=== PATIENT | female | born 1945 | race Two or more races ===

== ENCOUNTER 2019-01-22 12:32 | Emergency (ER) | payer MEDICAID, MEDICARE, OTHER ==
[~2019-01-22] VITALS: Ht 172.7 cm; Wt 68.0 kg
[2019-01-22 13:21] LABS: Urine Bacteria NONE SEEN /hpf (None Seen); Urine Blood Negative /uL (Negative); Urine WBC 1 /hpf (0 - 5)
[2019-01-22] MEDS ORDERED: SODIUM CHLORIDE 0.9% 1,000 ML IV ONE (13:23)
[2019-01-22] MEDS ORDERED: KETOROLAC TROMETH 30 MG/ML 1ML VIAL IV ONE (13:30)
[2019-01-22] MEDS ORDERED: ASPirin 81 mg TAB PO ONE (13:30)
[2019-01-22 13:44] LABS: Basophils # (auto) 0 uL; Basophils % (auto) 0.4 % (0.0-2.0); Eosinophils # (auto) 0.2 uL; Eosinophils % (auto) 2.6 % (0.0-7.0); Hematocrit 37.5 % (36.0-46.0); Hemoglobin 12.3 g/dL (12.2-16.2); Lymphocytes # (auto) 1.5 uL; Lymphocytes % (auto) 19.2 % (10.0-50.0); Mean Corpuscular Hgb Conc. 32.8 g/dL (32.0-36.0); Mean Corpuscular Volume 85.3 fL (80.0-100.0); Monocytes # (auto) 0.8 uL; Monocytes % (auto) 9.9 % (0.0-12.0); Neutrophils # (auto) 5.2 uL; Neutrophils % (auto) 67.9 % (37.0-80.0); Platelet Count (auto) 291 10^3/uL (140-450); Red Cell Distribution Width 17.7 % (11.8-14.3); White Blood Cell 7.6 10^3/uL (4.4-10.8)
[2019-01-22 14:00] LABS: Albumin 3.5 g/dL (3.4-5.0); Anion Gap 10 (5-15); Calcium 8.9 mg/dL (8.5-10.1); Carbon Dioxide 26 mmol/L (21-32); Chloride 105 mmol/L (98-107); Glucose 87 mg/dL (74-106); Potassium 3.3 mmol/L (3.5-5.1); Sodium 141 mmol/L (136-145)
[2019-01-22 14:05] LABS: Alanine Aminotransferase 28 U/L (13-56); Aspartate Aminotransferase 21 U/L (15-37); GFR African American 77 mL/min; GFR Non-African American 64 mL/min
[2019-01-22 14:09] LABS: Alkaline Phosphatase 51 U/L (45-117); BUN/Creatinine Ratio 20.7; Bilirubin, Total 0.5 mg/dL (0.2-1.0); Blood Urea Nitrogen 19 mg/dL (7-18)
[2019-01-22] MEDS ORDERED: POTASSIUM EFFERVESENT TAB 25 MEQ PO ONE (15:15)
[2019-01-22] MEDS ORDERED: IOHEXOL 350 MG/ML 100ML IJ ONE (15:17)
[2019-01-22] MEDS ORDERED: cloNIDine HCL 0.1 MG TAB ONE (17:06)
[2019-01-22 17:57] VITALS: BP 171/81
== END 2019-01-22 18:19 | disposition home or self-care (01) ==
LOC: EDBD 12:32 → ER 12:32
DX: R07.89 Other chest pain (principal); E87.6 Hypokalemia; I10 Essential (primary) hypertension; E11.9 Type 2 diabetes mellitus without complications; Z85.3 Personal history of malignant neoplasm of breast; Z90.710 Acquired absence of both cervix and uterus
CPT/HCPCS: 36415; 71046; 71275; 80053; 81001; 83735; 84443; 84484; 85025; 85379; 94761; 96374; 99284; J1885; J7030; Q9967

== ENCOUNTER 2024-10-18 07:57 | Emergency (ER) | payer OTHER ==
[~2024-10-18] VITALS: Ht 160 cm; Wt 68.7 kg
[2024-10-18 08:43] VITALS: TEMP 97.8
[2024-10-18 09:22] LABS: Basophils # (auto) 0 10 ^3/uL (0-0.2); Basophils % (auto) 0.7 % (0.0-2.0); Eosinophils # (auto) 0.1 10 ^3/uL (0-0.8); Eosinophils % (auto) 1.6 % (0.0-7.0); Hematocrit 36.3 % (36.0-46.0); Hemoglobin 11.9 g/dL (12.2-16.2); Lymphocytes # (auto) 0.6 10 ^3/uL (0.4-5.4); Lymphocytes % (auto) 10.2 % (10.0-50.0); Mean Corpuscular Hemoglobin 29.6 pg (28.0-32.0); Mean Corpuscular Hgb Conc. 32.9 g/dL (32.0-36.0); Mean Corpuscular Volume 89.9 fL (80.0-100.0); Monocytes # (auto) 0.3 10 ^3/uL (0-1.3); Monocytes % (auto) 4.5 % (0.0-12.0); Neutrophils # (auto) 5.2 10 ^3/uL (1.6-8.6); Nucleated Red Blood Cells % 0.1 %; Platelet Count (auto) 275 10^3/uL (140-450); Red Blood Cells 4.04 10^6/uL (4.0-5.20); Red Cell Distribution Width 18.2 % (11.8-14.3); White Blood Cell 6.2 10^3/uL (4.4-10.8)
[2024-10-18 09:33] LABS: Alanine Aminotransferase 22 U/L (7-40); Albumin 4.3 g/dL (3.2-4.8); Alkaline Phosphatase 50 U/L (46-116); Anion Gap 11 (5-15); Aspartate Aminotransferase 14 U/L (13-40); BUN/Creatinine Ratio 24.7 (10.0-20.0); Carbon Dioxide 24 mmol/L (20-31); Chloride 103 mmol/L (98-107); Potassium 3.6 mmol/L (3.5-5.1); Sodium 138 mmol/L (136-145); Total Protein 6.6 g/dL (5.7-8.2)
[2024-10-18 09:34] LABS: Bilirubin, Total 0.7 mg/dL (0.2-1.0); Blood Urea Nitrogen 24 mg/dL (9-23); Glucose 307 mg/dL (74-106)
[2024-10-18 09:41] LABS: Urine Bacteria FEW /hpf (None Seen); Urine Blood Negative /uL (Negative); Urine Clarity Clear (Clear); Urine Color Light-Yellow (Yellow); Urine Mucus FEW (None Seen); Urine Protein, UAD 2+ (Negative); Urine Squamous Epithelial Cell None Seen /hpf (<5); Urine Urobilinogen Normal (Negative); Urine WBC 28 /HPF (0-5)
--- NOTE | 2024-10-18 09:56 | DVH ---
EXAM: CT HEAD WITHOUT CONTRAST HISTORY: mechanical fall COMPARISON: None TECHNIQUE: Noncontrast axial CT images of the head were performed. Sagittal and coronal reformatted i mages were obtained. This CT exam was performed using 1 or more of the following dose reduction techn iques: Automated exposure control, adjustment of the mA and/or kv according to patient size, or the u se of iterative reconstruction techniques. Radiation Dose: CTDI volume is 64.2 mGy. Dose-length product is 2375.21 mGy*cm FINDINGS: There is global brain atrophy. There is mild decreased attenuation in the periventricular white lazaro er. 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 No intracran ial hemorrhage, mass, midline shift, hydrocephalus, or evidence of acute large vessel infarct. There are thick atherosclerotic calcifications of the cavernous ICAs. There are postoperative changes of bi lateral cataract extraction surgery. Probable old bilateral nasal bone fractures. There is a small am ount of fluid in the dependent portion of the left maxillary sinus. There is gas along the left maxil abdiel sinus anterior wall and posterolateral wall, without evidence of acute displaced fracture. There may be an old fracture of the left maxillary sinus anterior wall. There is a mucous retention cyst i n the left sphenoid sinus. There is a left gabby bullosa. There are degenerative changes of the tem poromandibular joints, greater on the left. The bilateral mastoid air cells and middle ear spaces are clear. No cranial fracture or scalp edema. IMPRESSION: 1. Global brain atrophy and chronic ischemic changes without evidence of acute intracranial process. 2. Gas in the soft tissues adjacent to the left maxillary sinus may indicate nondisplaced acute fract ure, although no acute displaced fractures are identified on the current study. Consider follow-up n oncontrast CT scan of the facial bones for better characterization. 3. Probable old nasal bone fractures and possible old fracture of the left maxillary sinus anterior w all. 4. Mild paranasal sinus disease.
--- NOTE | 2024-10-18 09:58 | DVH ---
Procedure: CT MAXILLOFACIAL WITHOUT 10/18/2024 09:20 AM Indication: fall. r/o fracture Comparison Study: None Technique: Axial images maxillofacial were obtained and reformatted in coronal and sagittal planes. A ll CT scans at this medical facility are performed using dose modulation techniques as appropriate to a performed exam including the following: Automated exposure control was utilized; adjustment of the MA and/or KV according to patient size; and use of iterative reconstruction technique. CT Dose: CTDI volume is 51, 64 mGy. Dose-length product is 2375 mGy*cm FINDINGS: Bones: Age-indeterminate avulsion fracture of the anterior nasal spine noted. The nasal bones are in tact. Mildly depressed fracture of the anterior maxillary sinus wall noted with moderate adjacent sof t tissue swelling and small amount of fluid/ hemorrhage in the maxillary sinus. Chronic appearing dep ression of the right lamina papyracea reflecting an old blowout injury. Mandible is intact. The temp oromandibular joints are maintained. 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 Soft tissues: The bilateral optic globes are intact. The intraconal and extraconal fat is clear. IMPRESSION: 1. Acute mildly depressed fracture of the anterior wall of the left maxillary sinus. Moderate adjacen t soft tissue air noted. 2. Age-indeterminate possibly acute fracture of the anterior nasal spine. The nasal bones are intact .
--- NOTE | 2024-10-18 10:01 | ECG ---
[facility] Test Date: 2024-10-18 Test Time: 09:59:31 Pat Name: JESSICA FUNES Department: ER Room: Gender: F Supervisor [employer]: [place] : 1945 Requested By: GENE MARIEE Order Number: [id number] Reading MD: Sb Gabriel Measurements Intervals [place] Rate: 74 P: 49 VT: 151 QRS: -44 QRSD: 89 T: 49 QT: 376 QTc: 418 Interpretive Statements Sinus rhythm Multiple ventricular premature complexes Left axis deviation Probable anteroseptal infarct, old Baseline wander in lead(s) II Electronically Signed On 10-18-2024 12:49:30 PDT by Sb Gabriel Please click the below link to view image of tracing.
[2024-10-18 10:51] LABS: Lactic Acid w/Reflex 2.6 mmol/L (0.4-2.0)
--- NOTE | 2024-10-18 10:54 | ED.PDOC ---
Ramiro. trauma (HPI) HPI Comments This is a pleasant 79-year-old female with a history of diabetes, hypertension, mastectomy who presents for a mechanical fall Reports falling on her face yesterday after tripping on a curb outside of [facility]. This morning reports a slip and fall that occurred in the shower. States she slipped on a bar of soap causing her to fall on her back. Currently she complains of a nonradiating frontal lobe headache that radiates to the left orbital region that is rated as moderate. Also complains of nonradiating left elbow pain, right lower back pain Denies persistent nausea Denies vomiting Denies taking any blood thinner medication Denies vision/hearing changes Denies focal loss of strength/sensation or changes in speech Chief Complaint: Fall Injury Time Seen by MD: 08:13 Primary Care Provider: BISHOP Silva notes: Nurses Notes, Medications, Allergies Allergies: Coded Allergies: NO KNOWN ALLERGIES (Unverified , 01/22/19) Home Meds Active Scripts Amoxicillin & Pot Clavulanate (AUGMENTIN TABLET) 875 Mg Tb, 875 MG PO BID for 5 Days, #10 TAB Prov:FLORIDALMA MACE MD 10/18/24 Information Source: Patient Mode of Arrival: Ambulatory Past Medical History PAST MEDICAL HISTORY: Cancer, DM, HTN Surgical History: Hysterectomy TEAM PSYCHOLOGIST History: No Pertinent TEAM PSYCHOLOGIST History Family History Family History: Unobtainable Social History Smoker: Non-Smoker Alcohol: Occasionally Drugs: Denies Drug Use Lives In: Home All Other Systems: Reviewed and Negative (PER HPI) Physical Exam General Appearance: No Apparent Distress, Normal HEENT: Head (Abrasion to the left lower orbital region. The head is normocephalic and atraumatic), Normal ENT Inspection, Pharynx Normal, TMs Normal Neck: Full Range of Motion, Non-Tender, Normal, Normal Inspection Respiratory: Chest Non-Tender, Lungs Clear, No Accessory Muscle Use, No Respiratory Distress, Normal Breath Sounds Cardiovascular: No Murmur, No Gallop, Regular Rate/Rhythm Breast Exam: Deferred Gastrointestinal: No Organomegaly, Non Tender, No Pulsatile Mass, Normal Bowel Sounds, Soft Genitalia: Deferred Pelvic: Deferred Rectal: Deferred Extremities: No calf tenderness, Normal capillary refill, Normal inspection, Normal range of motion, Non-tender, No pedal edema Musculoskeletal : Location: Right Extremity Location: Back (No midline tenderness. No bony step-offs on palpation. Full forward flexion-extension lateral movements. Right paralumbar TTP), Elbow (Full ROM. No deformities.) Apperance: Normal Neurologic: Alert, No Motor Deficits, Normal Affect, Normal Mood, No Sensory Deficits Cerebellar Function: Normal Reflexes: Normal Skin: Dry, Normal Color, Warm Lymphatic: No Adenopathy Was a procedure done? Was a procedure done?: No Differential Diagnosis Multiple Trauma: Closed Head Injury, Fractures, Abrasions, Contusion X-Ray, Labs, Meds, VS Vital Signs Date Time Temp Pulse Resp B/P (MAP) Pulse Ox O2 Delivery O2 Flow Rate FiO2 10/18/24 20:25 108/47 (67) 10/18/24 20:00 Room Air* 0 21 21 10/18/24 19:54 61 14 111/44 (66) 97 10/18/24 18:52 200/97 10/18/24 18:44 200/97 10/18/24 18:39 200/97 10/18/24 17:39 190/88 10/18/24 15:33 89 17 196/80 (118) 99 10/18/24 12:25 78 18 172/80 (110) 98 10/18/24 09:59 74 10/18/24 08:43 109 16 97 Room Air 10/18/24 08:43 97.8 109 16 193/107 (135) 97 97.8 10/18/24 08:27 97.8 109 16 193/107 (135) 97 97.8 Lab Test 10/18/24 13:26 10/18/24 10:15 10/18/24 09:15 10/18/24 09:04 Range/Units Lactic Acid Level 3.7 *H 2.6 *H 0.4-2.0 mmol/L Troponin I High Sensitivity 16 11 </=34 ng/L Urine Color Light-yellow Yellow Urine Clarity Clear Clear Urine pH 6.0 5.0-9.0 Urine Specific [place] 1.020 1.001-1.035 Urine Protein 2+ H Negative Urine Ketones Negative Negative Urine Blood Negative Negative /uL Urine Nitrite 1+ H Negative Urine Bilirubin Negative Negative Urine Urobilinogen Normal Negative mg/dL Urine Leukocyte Esterase Trace Negative /uL Urine RBC 1 0 - 4 /hpf Urine Microscopic WBC 28 H 0-5 /HPF Urine Squamous Epithelial Cells None seen <5 /hpf Urine Bacteria Few H None Seen /hpf Urine Mucus Few None Seen Urine Glucose 4+ H Normal mg/dL White Blood Count 6.2 4.4-10.8 10^3/uL Red Blood Count 4.04 4.0-5.20 10^6/uL Hemoglobin 11.9 L 12.2-16.2 g/dL Hematocrit 36.3 36.0-46.0 % Mean Corpuscular Volume 89.9 80.0-100.0 fL Mean Corpuscular Hemoglobin 29.6 28.0-32.0 pg Mean Corpuscular Hemoglobin Concent 32.9 32.0-36.0 g/dL Red Cell Distribution Width 18.2 H 11.8-14.3 % Platelet Count 275 140-450 10^3/uL Mean Platelet Volume 8.7 6.9-10.8 fL Neutrophils (%) (Auto) 83.0 H 37.0-80.0 % Lymphocytes (%) (Auto) 10.2 10.0-50.0 % Monocytes (%) (Auto) 4.5 0.0-12.0 % Eosinophils (%) (Auto) 1.6 0.0-7.0 % Basophils (%) (Auto) 0.7 0.0-2.0 % Neutrophils # (Auto) 5.2 1.6-8.6 10 ^3/uL Lymphocytes # (Auto) 0.6 0.4-5.4 10 ^3/uL Monocytes # (Auto) 0.3 0-1.3 10 ^3/uL Eosinophils # (Auto) 0.1 0-0.8 10 ^3/uL Basophils # (Auto) 0 0-0.2 10 ^3/uL Nucleated Red Blood Cells 0.1 % Sodium Level 138 136-145 mmol/L Potassium Level 3.6 3.5-5.1 mmol/L Chloride Level 103 98-107 mmol/L Carbon Dioxide Level 24 20-31 mmol/L Anion Gap 11 5-15 Blood Urea Nitrogen 24 H 9-23 mg/dL Creatinine 0.97 0.550-1.02 mg/dL Glomerular Filtration Rate Calc 59 >90 mL/min BUN/Creatinine Ratio 24.7 H 10.0-20.0 Serum Glucose 307 H 74-106 mg/dL Calcium Level 10.0 8.7-10.4 mg/dL Total Bilirubin 0.7 0.2-1.0 mg/dL Aspartate Amino Transferase (AST) 14 13-40 U/L Alanine Aminotransferase (ALT) 22 7-40 U/L Alkaline Phosphatase 50 46-116 U/L Total Protein 6.6 5.7-8.2 g/dL Albumin 4.3 3.2-4.8 g/dL Microbiology Date/Time Source Procedure Growth Status 10/18/24 09:15 Voided Urine Urine Culture - Preliminary Resulted Current Medications Medications (Trade) Dose Ordered Sig/Danette Route Start Time Stop Time Status Last Admin Clonidine HCl (Catapres Tablet) 0.2 mg ONCE ONCE PO 10/18/24 17:45 10/18/24 17:46 DC 10/18/24 17:39 Hydralazine HCl (Apresoline Injection) 10 mg ONCE ONCE IV 10/18/24 18:30 10/18/24 18:32 DC 10/18/24 18:52 Losartan Potassium (Cozaar Tablet) 50 mg ONCE ONCE PO 10/18/24 18:30 10/18/24 18:32 DC 10/18/24 18:44 PATIENT: JESSICA FUNESACCT: [id number]: [id number] : 1945 LOC: ER ROOM / BED: / AGE / SEX: 79 / F ADM STATUS: REG ER SERVICE 5 ORDERING PHYSICIAN: GENE MARIEE NP PROCEDURE(s): HWOCT - HEAD WITHOUT CONTRAST REASON: mechanical fall ORDER NUMBER(s): [id number], ACCESSION NUMBER(s): [id number] EXAM: CT HEAD WITHOUT CONTRAST HISTORY: mechanical fall COMPARISON: None TECHNIQUE: Noncontrast axial CT images of the head were performed. Sagittal and coronal reformatted images were obtained. This CT exam was performed using 1 or more of the following dose reduction techniques: Automated exposure control, adjustment of the mA and/or kv according to patient size, or the use of iterative reconstruction techniques. Radiation Dose: CTDI volume is 64.2 mGy. Dose-length product is 2375.21 mGy*cm FINDINGS: There is global brain atrophy. There is mild decreased attenuation in the periventricular white matter. 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 No intracranial hemorrhage, mass, midline shift, hydrocephalus, or evidence of acute large vessel infarct. There are thick atherosclerotic calcifications of the cavernous ICAs. There are postoperative changes of bilateral cataract extraction surgery. Probable old bilateral nasal bone fractures. There is a small amount of fluid in the dependent portion of the left maxillary sinus. There is gas along the left maxillary sinus anterior wall and posterolateral wall, without evidence of acute displaced fracture. There may be an old fracture of the left maxillary sinus anterior wall. There is a mucous retention cyst in the left sphenoid sinus. There is a left gabby bullosa. There are degenerative changes of the temporomandibular joints, greater on the left. The bilateral mastoid air cells and middle ear spaces are clear. No cranial fracture or scalp edema. IMPRESSION: 1. Global brain atrophy and chronic ischemic changes without evidence of acute intracranial process. 2. Gas in the soft tissues adjacent to the left maxillary sinus may indicate nondisplaced acute fracture, although no acute displaced fractures are identified on the current study. Consider follow-up noncontrast CT scan of the facial bones for better characterization. 3. Probable old nasal bone fractures and possible old fracture of the left maxillary sinus anterior wall. 4. Mild paranasal sinus disease. ATED BY: JUSTEN GILBERT MD DICTATED DATE/TIME: 10/18/24952 SIGNED BY: JUSTEN GILBERT MD SIGNED DATE/TIME: 10/18/24952 CC: PATIENT: JESSICA FUNES ACCT: [id number] UNIT: [id number] : 1945 LOC: ER ROOM / BED: / AGE / SEX: 79 / F ADM STATUS: REG ER SERVICE 5 ORDERING PHYSICIAN: GENE MARIEE NP PROCEDURE(s): FAC2C - MAXILLOFACIAL WITHOUT REASON: fall. r/o fracture ORDER NUMBER(s): [id number], ACCESSION NUMBER(s): [id number] Procedure: CT MAXILLOFACIAL WITHOUT 10/18/2024 09:20 AM Indication: fall. r/o fracture Comparison Study: None Technique: Axial images maxillofacial were obtained and reformatted in coronal and sagittal planes. All CT scans at this medical facility are performed using dose modulation techniques as appropriate to a performed exam including the following: Automated exposure control was utilized; adjustment of the MA and/or KV according to patient size; and use of iterative reconstruction technique. CT Dose: CTDI volume is 51, 64 mGy. Dose-length product is 2375 mGy*cm FINDINGS: Bones: Age-indeterminate avulsion fracture of the anterior nasal spine noted. The nasal bones are intact. Mildly depressed fracture of the anterior maxillary sinus wall noted with moderate adjacent soft tissue swelling and small amount of fluid/ hemorrhage in the maxillary sinus. Chronic appearing depression of the right lamina papyracea reflecting an old blowout injury. Mandible is intact. The temporomandibular joints are maintained. 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 Soft tissues: The bilateral optic globes are intact. The intraconal and extraconal fat is clear. IMPRESSION: 1. Acute mildly depressed fracture of the anterior wall of the left maxillary sinus. Moderate adjacent soft tissue air noted. 2. Age-indeterminate possibly acute fracture of the anterior nasal spine. The nasal bones are intact. ATED BY: ZOEY KIRBY MD DICTATED DATE/TIME: 10/18/24955 SIGNED BY: ZOEY KIRBY MD SIGNED DATE/TIME: 10/18/24955 X-Ray, Labs, Meds, VS Comment This is a pleasant 79-year-old female with a history of diabetes, hypertension, mastectomy who presents for a mechanical fall The following differential diagnoses were considered for this patient; subdural hematoma, subarachnoid hemorrhage, epidural hematoma, intraparenchymal bleed, herniation, skull fracture. The patient had a computed tomography of their head and face and results show 1. Global brain atrophy and chronic ischemic changes without evidence of acute intracranial process. 2. Gas in the soft tissues adjacent to the left maxillary sinus may indicate nondisplaced acute fracture, although no acute displaced fractures are identified on the current study. Consider follow-up noncontrast CT scan of the facial bones for better characterization. 3. Probable old nasal bone fractures and possible old fracture of the left maxillary sinus anterior wall. 4. Mild paranasal sinus disease. 1. Acute mildly depressed fracture of the anterior wall of the left maxillary sinus. Moderate adjacent soft tissue air noted. 2. Age-indeterminate possibly acute fracture of the anterior nasal spine. The nasal bones are intact. Labs show: WBC 6.2, hemoglobin 11.9, neutrophils 83.0, electrolytes reassuring, creatinine 0.97, EGFR 59, BUN creatinine 24.7, serum glucose 307, AST ALT reassuring, troponin lactic pending at this time Patients work up was also remarkable for a UTI and multiple ventricular premature complexes on EKG. The patient's workup reveals that the patient needs further treatment for the above medical conditions. In the emergency department the patient received broad-spectrum IV antibiotics Patient verbalized understanding of the above and is awaiting further evaluation by the admitting service. Time of 1ST Reevaluation: 10:38 Reevaluation 1ST: Unchanged Patient Education/Counseling: Diagnosis, Treatment Family Education/Counseling: Diagnosis, Treatment Departure 1 Departure Time of Disposition: 11:09 Impression: Primary Impression: Brain atrophy Additional Impressions: Fall Qualified Codes: W19.XXXA - Unspecified fall, initial encounter UTI (urinary tract infection) Qualified Codes: N30.00 - Acute cystitis without hematuria Maxillary sinus fracture Qualified Codes: S02.40DA - Maxillary fracture, left side, initial encounter for closed fracture Premature ventricular contraction on electrocardiogram Hyperglycemia Hypertensive urgency Disposition: 09 ADMITTED INPATIENT Condition: Fair e-Prescriptions Amoxicillin & Pot Clavulanate (AUGMENTIN TABLET) 875 Mg Tb 875 MG PO BID for 5 Days, #10 TAB Prov: FLORIDALMA MACE MD 10/18/24 Critical Care Note Critical Care Time?: No Stability Stability form required: No Heart Score Heart Score: Heart Score Response (Comments) Value History N/A 0 EKG N/A 0 Age N/A 0 Risk Factors N/A 0 Troponin N/A 0 Total 0 GENE MARIEE NP October 18, 2024 10:54
[2024-10-18] MEDS ORDERED: AUG875T PO (14:59)
--- NOTE | 2024-10-18 15:07 | DVHINCON2 ---
Date Seen: October 18, 2024 Reason for Consultation Facial pain History of Present Illness 79-year-old female fell yesterday and injured her face resulting in a fracture of the anterior wall of the left maxillary sinus She had no syncope Past Medical History Hypertension Type 2 diabetes Past Surgical History Hysterectomy Allergies: Coded Allergies: NO KNOWN ALLERGIES (Unverified , 01/22/19) Home Meds Active Scripts Amoxicillin & Pot Clavulanate (AUGMENTIN TABLET) 875 Mg Tb, 875 MG PO BID for 5 Days, #10 TAB Prov:FLORIDALMA MACE MD 10/18/24 Vital Signs Vital Signs Date Time Temp Pulse Resp B/P (MAP) Pulse Ox O2 Delivery O2 Flow Rate FiO2 10/18/24 12:25 78 18 172/80 (110) 98 10/18/24 08:43 Room Air 10/18/24 08:43 97.8 97.8 Physical Exam Alert and oriented no apparent distress Tenderness and slight edema at the left maxillary sinus Chest is clear to auscultation Heart regular rate and rhythm no murmurs Extremities trace edema bilaterally Labs/Diagnostic Data Labs Test 10/18/24 13:26 10/18/24 10:15 10/18/24 09:15 10/18/24 09:04 Range/Units Lactic Acid Level 3.7 *H 0.4-2.0 mmol/L Troponin I High Sensitivity 16 </=34 ng/L Urine Color Light-yellow Yellow Urine Clarity Clear Clear Urine pH 6.0 5.0-9.0 Urine Specific [place] 1.020 1.001-1.035 Urine Protein 2+ H Negative Urine Ketones Negative Negative Urine Blood Negative Negative /uL Urine Nitrite 1+ H Negative Urine Bilirubin Negative Negative Urine Urobilinogen Normal Negative mg/dL Urine Leukocyte Esterase Trace Negative /uL Urine RBC 1 0 - 4 /hpf Urine Microscopic WBC 28 H 0-5 /HPF Urine Squamous Epithelial Cells None seen <5 /hpf Urine Bacteria Few H None Seen /hpf Urine Mucus Few None Seen Urine Glucose 4+ H Normal mg/dL White Blood Count 6.2 4.4-10.8 10^3/uL Red Blood Count 4.04 4.0-5.20 10^6/uL Hemoglobin 11.9 L 12.2-16.2 g/dL Hematocrit 36.3 36.0-46.0 % Mean Corpuscular Volume 89.9 80.0-100.0 fL Mean Corpuscular Hemoglobin 29.6 28.0-32.0 pg Mean Corpuscular Hemoglobin Concent 32.9 32.0-36.0 g/dL Red Cell Distribution Width 18.2 H 11.8-14.3 % Platelet Count 275 140-450 10^3/uL Mean Platelet Volume 8.7 6.9-10.8 fL Neutrophils (%) (Auto) 83.0 H 37.0-80.0 % Lymphocytes (%) (Auto) 10.2 10.0-50.0 % Monocytes (%) (Auto) 4.5 0.0-12.0 % Eosinophils (%) (Auto) 1.6 0.0-7.0 % Basophils (%) (Auto) 0.7 0.0-2.0 % Neutrophils # (Auto) 5.2 1.6-8.6 10 ^3/uL Lymphocytes # (Auto) 0.6 0.4-5.4 10 ^3/uL Monocytes # (Auto) 0.3 0-1.3 10 ^3/uL Eosinophils # (Auto) 0.1 0-0.8 10 ^3/uL Basophils # (Auto) 0 0-0.2 10 ^3/uL Nucleated Red Blood Cells 0.1 % Sodium Level 138 136-145 mmol/L Potassium Level 3.6 3.5-5.1 mmol/L Chloride Level 103 98-107 mmol/L Carbon Dioxide Level 24 20-31 mmol/L Anion Gap 11 5-15 Blood Urea Nitrogen 24 H 9-23 mg/dL Creatinine 0.97 0.550-1.02 mg/dL Glomerular Filtration Rate Calc 59 >90 mL/min BUN/Creatinine Ratio 24.7 H 10.0-20.0 Serum Glucose 307 H 74-106 mg/dL Calcium Level 10.0 8.7-10.4 mg/dL Total Bilirubin 0.7 0.2-1.0 mg/dL Aspartate Amino Transferase (AST) 14 13-40 U/L Alanine Aminotransferase (ALT) 22 7-40 U/L Alkaline Phosphatase 50 46-116 U/L Total Protein 6.6 5.7-8.2 g/dL Albumin 4.3 3.2-4.8 g/dL Plan/Recommendation Nondisplaced anterior wall left maxillary sinus fracture UTI Hypertension Type 2 diabetes Plan Discharged home Augmentin for 5 days Tylenol p.r.n. for pain Resume other home medications Follow up with the primary care physician to get a referral to a maxillofacial surgeon as an outpatient for follow up Stable for discharge Plan discussed with: Patient, Son Date of Service: October 18, 2024 Billing Provider: FLORIDALMA MACE MD Common Visit Codes: NOT BILLABLE FLORIDALMA MACE MD October 18, 2024 15:07
[2024-10-18] MEDS: cefTRIAXone 1GM/50ML D5W 50 ML IV ONE (15:45)
[2024-10-18] MEDS: SODIUM CHLORIDE 0.9% 1,000 ML IV ONE (15:45)
[2024-10-18] MEDS: cloNIDine HCL 0.1 MG TAB PO ONE (17:39)
[2024-10-18] MEDS: LOSARTAN POTASSIUM 50 MG TAB PO ONE (18:44)
[2024-10-18] MEDS: hydrALAZINE HCL 20 MG/ML VL IV ONE (18:52)
[2024-10-18 19:54] VITALS: PULSE 61; RESP 14; O2SAT 97
[2024-10-18 20:25] VITALS: BP 108/47
== END 2024-10-18 20:26 | disposition home or self-care (01) ==
LOC: ER 07:57
DX: S02.40DA Maxillary fracture, left side, initial encounter for closed fracture (principal); G31.9 Degenerative disease of nervous system, unspecified; N39.0 Urinary tract infection, site not specified; I49.3 Ventricular premature depolarization; E11.65 Type 2 diabetes mellitus with hyperglycemia; I16.0 Hypertensive urgency; I10 Essential (primary) hypertension; Z90.710 Acquired absence of both cervix and uterus; W01.0XXA Fall on same level from slipping, tripping and stumbling without subsequent striking against object, initial encounter; Y93.89 Activity, other specified; Y92.89 Other specified places as the place of occurrence of the external cause; Y99.8 Other external cause status
CPT/HCPCS: 36415; 70450; 70486; 80053; 81001; 83605; 84484; 85025; 87086; 93005; 96365; 96375; 99285; J0360; J0696

== ENCOUNTER 2024-12-09 16:31 | Emergency (ER) | payer OTHER ==
[~2024-12-09] VITALS: Ht 160 cm; Wt 68.0 kg
[~2024-12-09 16:31] MED LIST: AUG875T PO
[2024-12-09] MEDS: TETANUS-DIPTH-ACEL PERTUSSIS 0.5ML SYR Tdap IM ONE (17:19)
--- NOTE | 2024-12-09 17:59 | ED.PDOC ---
History of Present Illness HPI Comments 79-year-old female presents with a chief complaint of laceration to left sided forehead s/p mechanical fall. Patient states that she had a mechanical fall at home and tripped over her son's motorcycle exhaust pipe. Patient states that from the fall she sustained a laceration to the left side of her face. Patients bleeding is controlled at this time. No other symptoms or modifying factors present at this time. Patient denies any LOC. vital signs were stable on arrival. Patient's tetanus is not up-to-date. Chief Complaint: Head Injury Time Seen by MD: 17:50 Primary Care Provider: BISHOP Reviewed Notes: Nurses Notes, Medications, Allergies Allergies: Coded Allergies: NO KNOWN ALLERGIES (Unverified , 01/22/19) Home Meds Active Scripts Amoxicillin & Pot Clavulanate (AUGMENTIN TABLET) 875 Mg Tb, 875 MG PO BID for 5 Days, #10 TAB Prov:FLORIDALMA MACE MD 10/18/24 Information Source: Patient Mode of Arrival: Ambulatory Severity: Moderate Timing: Hours Duration: Since onset Prehospital treatment: None Past Medical History PAST MEDICAL HISTORY: Cancer, DM, HTN Surgical History: Hysterectomy [employer] 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 History Family History Family History: Unobtainable Social History Smoker: Non-Smoker Alcohol: Occasionally Drugs: Denies Drug Use Lives In: Home Constitutional: denies: chills, diaphoresis, fatigue, fever, malaise, sweats, weakness, others EENTM: denies: blurred vision, double vision, ear bleeding, ear discharge, ear drainage, ear pain, ear ringing, eye pain, eye redness, hearing loss, mouth pain, mouth swelling, nasal discharge, nose bleeding, nose congestion, nose pain, photophobia, tearing, throat pain, throat swelling, voice changes, others Respiratory: denies: cough, hemoptysis, orthopnea, SOB at rest, shortness of breath, SOB with excertion, stridor, wheezing, others Cardiovascular: denies: chest pain, dizzy spells, diaphoresis, Dyspnea on exertion, edema, irregular heart beat, left arm pain, lightheadedness, palpitations, PND, syncope, others Gastrointestinal: denies: abdomen distended, abdominal pain, blood streaked bowels, constipated, diarrhea, dysphagia, difficulty swallowing, hematemesis, m fabian, nausea, poor appetite, poor fluid intake, rectal bleeding, rectal pain, vomiting, others Genitourinary: denies: abnormal vagina bleeding, burning, dyspareunia, dysuria, flank pain, frequency, hematuria, incontinence, pain, , vagina discharge, urgency, others Neurological: denies: dizziness, fainting, headache, left sided numbness, left sided weakness, numbness, paresthesia, pre-existing deficit, right sided numbness, right sided weakness, seizure, speech problems, tingling, tremors, weakness, others Musculoskeletal: denies: back pain, gout, joint pain, joint swelling, muscle pain, muscle stiffness, neck pain, others Integumetry: reports: laceration (To lateral left-sided forehead); denies: bruises, change in color, change in hair/nails, dryness, lesions, lumps, rash, wounds, others Allergic/Immunocompromised: denies: Difficulty Healing, Frequent Infections, Hives, Itching, others Hematologic/Lymphatic: denies: anemia, blood clots, easy bleeding, easy bruising, swollen glands, others Endocrine: denies: excessive hunger, excessive sweating, excessive thirst, excessive urination, flushing, intolerance to cold, intolerance to heat, unexplained weight gain, unexplained weight loss, others Psychiatric: denies: anxiety, bipolar disorder, depression, hopeless, panic disorder, schizophrenia, sleepless, suicidal, others All Other Systems: Reviewed and Negative Physical Exam General Appearance: Mild Distress (Moderate distress due to concerns about her laceration.), Normal HEENT: Pharynx Normal, TMs Normal, Other (Patient displays a mild subconjunctival hemorrhage noted to the left globe. No change in vision.) Neck: Full Range of Motion, Non-Tender, Normal, Normal Inspection Respiratory: Chest Non-Tender, Lungs Clear, No Accessory Muscle Use, No Respiratory Distress, Normal Breath Sounds Cardiovascular: No Edema, No JVD, No Murmur, No Gallop, Normal Peripheral Pulses, Regular Rate/Rhythm Breast Exam: Deferred Gastrointestinal: No Organomegaly, Non Tender, No Pulsatile Mass, Normal Bowel Sounds, Soft Genitalia: Deferred Pelvic: Deferred Rectal: Deferred Extremities: No calf tenderness, Normal capillary refill, Normal inspection, Normal range of motion, Non-tender, No pedal edema Musculoskeletal : Apperance: Normal Neurologic: Alert, No Motor Deficits, Normal Affect, Normal Mood, No Sensory Deficits Cerebellar Function: Normal Reflexes: Normal Skin: Dry, Lacerations (Patient displays a 2 cm laceration to the lateral aspect of her forehead superior to her eyebrow. No active bleed. No skull depressions or deformities.), Normal Color, Warm Lymphatic: No Adenopathy Was a procedure done? Was a procedure done?: Yes Sedation Sedation?: No Other Procedure Notes 4 cc of 1% lidocaine was utilized for local anesthesia of the lateral left-sided forehead superior to the eyebrow. Sterile field was placed. Copious irrigation performed. For 5-0 Ethilon sutures were placed in a simple interrupted fashion to close the wound. Minimal blood loss. Patient tolerated procedure well. Clean dressing applied. Differential Dx Considerations may include: Head trauma, subarachnoid hemorrhage, subdural hematoma, skull fracture, facial fracture, facial laceration, fall X-Ray, Labs, Meds, VS Vital Signs Date Time Temp Pulse Resp B/P (MAP) Pulse Ox O2 Delivery O2 Flow Rate FiO2 12/09/24 16:40 98.3 96 16 183/94 (123) 97 98.3 Current Medications Medications (Trade) Dose Ordered Sig/Danette Route Start Time Stop Time Status Last Admin Diphtheria/ Tetanus/Acell Pertussis (Boostrix T-Dap) 0.5 ml ONCE ONCE IM 12/09/24 17:00 12/09/24 17:01 DC 12/09/24 17:19 X-Ray, Labs, Meds, VS Comment All studies performed the ED were evaluated by me personally. CT of the head was unremarkable for any acute intracranial process or skull fracture. Advised patient utilize antibiotics as directed until completion. Patient should return to ED or primary care provider in approximately eight days for re-evaluation and probable suture removal. Time of 1ST Reevaluation: 18:38 Reevaluation 1ST: Improved Consultation: PCP Patient Education/Counseling: Diagnosis, Treatment, Need For Follow Up Family Education/Counseling: Diagnosis, Treatment, No Family Present SEPSIS Sepsis Screen Date sepsis recognized/suspect: Dec 09, 2024 Time Sepsis recognized/suspect: 1640 Recent Procedure: No On Antibiotic Therapy: No Respiratory Rate >20: No Heart Rate >90: No Temp<36 C (96.8 F) or >38.3 C: No SBP <90 or MAP <65 mmHG: No New Acute Mental Status Change: No Is the patient on CPAP, BIPAP,: No Physician Orders Head Without Contrast (12/09/24 16:54) Vital Signs Date Time Temp Pulse Resp B/P (MAP) Pulse Ox O2 Delivery O2 Flow Rate FiO2 12/09/24 16:40 98.3 96 16 183/94 (123) 97 98.3 Medications Medications Dose Ordered Sig/Danette Route Start Time Stop Time Status Last Admin Dose Admin Diphtheria/ Tetanus/Acell Pertussis 0.5 ml ONCE ONCE IM 12/09/24 17:00 12/09/24 17:01 DC 12/09/24 17:19 Departure 1 Departure Time of Disposition: 18:39 Impression: Primary Impression: Fall Additional Impressions: Facial trauma Facial laceration Disposition: HOME / SELF CARE / HOMELESS Condition: Stable Additional Instructions: Advised patient utilize antibiotics as directed until completion as well as pain medication as needed. Patient should follow up with the primary care provider or return to ED in eight days for re-evaluation and probable suture removal. e-Prescriptions Acetaminophen (Acetaminophen) 500 Mg Tab 500 MG PO Q4HP PRN, #20 TAB Prov: MIKE SCHMITT PAC 12/09/24 Cephalexin (KEFLEX CAPSULE) 250 Mg Cp 1 CAP PO QID for 7 Days, #28 CAP Prov: MIKE SCHMITT PAC 12/09/24 Discharged With: Self, Friend Critical Care Note Critical Care Time?: No Stability Stability form required: No Heart Score Heart Score: Heart Score Response (Comments) Value History N/A 0 EKG N/A 0 Age N/A 0 Risk Factors N/A 0 Troponin N/A 0 Total 0 I personally scribed for MIKE SCHMITT PAC ([email or web address]) on 12/09/24 at 17:59. Electronically submitted by Kenneth Lund ([email or web address]). MIKE SCHMITT PAC Dec 09, 2024 17:59
--- NOTE | 2024-12-09 18:25 | DVH ---
Exam: CT HEAD WITHOUT CONTRAST History: Left-sided facial trauma Technique: [address] images through the posterior fossa and the supratentorial compart ment were acquired without contrast and imaged using soft tissue and bone algorithms. RADIATION DOSE: DLP 1049.34 mGy.cm; CTDI vol 53.24 mGy. Comparison: CT HEAD WITHOUT CONTRAST on DOS: 10/18/24 Findings: There is no evidence of an intracranial hemorrhage, acute large vessel infarct, mass effect, or midli ne shift. There is mild cerebral atrophy. Moderate calcification of the carotid siphons. Irregular appearance of the left globe. No definite retinal hemorrhage. The calvarium, paranasal sinuses, sella, middle ears, and mastoids are unremarkable. The superficial soft tissues are within normal limits. Impression: 1. No acute intracranial abnormality. 2. Irregular appearance of the left globe. No definite retinal hemorrhage. Correlate with physical a nd funduscopic exam.
[2024-12-09] MEDS ORDERED: ACET500T58 PO (18:40)
[2024-12-09] MEDS ORDERED: CEPH250C PO (18:40)
[2024-12-09 18:47] VITALS: BP 199/80; PULSE 79; RESP 24; TEMP 98.1; O2SAT 97
== END 2024-12-09 18:51 | disposition home or self-care (01) ==
LOC: ER 16:37
DX: S01.81XA Laceration without foreign body of other part of head, initial encounter (principal); F10.90 Alcohol use, unspecified, uncomplicated; E11.9 Type 2 diabetes mellitus without complications; I10 Essential (primary) hypertension; Z90.710 Acquired absence of both cervix and uterus; Z79.899 Other long term (current) drug therapy; W01.0XXA Fall on same level from slipping, tripping and stumbling without subsequent striking against object, initial encounter; Y93.89 Activity, other specified; Y92.89 Other specified places as the place of occurrence of the external cause; Y99.8 Other external cause status; Y90.9 Presence of alcohol in blood, level not specified
CPT/HCPCS: 12011; 70450; 90471; 90715; 99285; J2003